=== PATIENT | male | born 1970 | race Two or more races ===

== ENCOUNTER 2018-03-29 18:13 | Emergency (ER) | payer SELFPAY ==
--- NOTE | 2018-03-29 18:33 | NUR ---
CALLED IN [facility], NO RESPONSE
--- NOTE | 2018-03-29 19:00 | NUR ---
CALLED MULTIPLE TIMES IN [facility], NO RESPONSE.
--- NOTE | 2018-03-29 19:36 | NUR ---
CALLED PT IN [facility], NO RESPONSE.
== END 2018-03-29 19:39 | disposition left against medical advice (07) ==
LOC: ER 18:18
DX: Z53.21 Procedure and treatment not carried out due to patient leaving prior to being seen by health care provider (principal)

== ENCOUNTER 2018-05-05 16:40 | Emergency (ER) | payer SELFPAY ==
--- NOTE | 2018-05-05 16:45 | NUR ---
CALLED TO TRIAGE,NOT AVAILABLE, "MAKING A PHONE CALL"
--- NOTE | 2018-05-05 17:08 | NUR ---
2ND CALL, PATIENT IS NOT IN THE WAITING ROOM.
--- NOTE | 2018-05-05 17:16 | NUR ---
3RD CALL, PATIENT IS NOT IN THE WAITING ROOM.
== END 2018-05-05 17:19 | disposition left against medical advice (07) ==
LOC: ER 16:42
DX: Z53.21 Procedure and treatment not carried out due to patient leaving prior to being seen by health care provider (principal)

== ENCOUNTER 2018-06-05 06:10 | Emergency (ER) | payer SELFPAY ==
[~2018-06-05] VITALS: Ht 175.3 cm; Wt 79.4 kg
--- NOTE | 2018-06-05 06:20 | NUR ---
PT CAME TO EMERGENCY DEPT. COMPLAINING OF L FLANK PAIN X 4 HOURS. PT STATES HE HAS HX OF KIDNEY STONES. PT AXO4. RESPIRATIONS EVEN AND UNLABORED. PT PUT ON THE MONITOR AND PULSE OX. PENDING EVAL FROM ER .
[2018-06-05] MEDS ORDERED: FENTANYL PF 100MCG/2ML AMPUL IV ONE (06:30)
[2018-06-05] MEDS ORDERED: ONDANSETRON HCL/PF 4 MG/2 ML VIAL IV ONE (06:30)
[2018-06-05] MEDS ORDERED: IV NS 0.9% 1,000 ML BAG IV ONE (06:30)
--- NOTE | 2018-06-05 06:30 | NUR ---
PT STATES UNABLE TO GIVE URINE AT THE MOMENT.
[2018-06-05 07:00] VITALS: BP 155/91
[2018-06-05] MEDS ORDERED: FENTANYL PF 100MCG/2ML AMPUL ONE (07:00)
[2018-06-05] MEDS ORDERED: ONDANSETRON HCL/PF 4 MG/2 ML VIAL ONE (07:00)
[2018-06-05 07:04] LABS: BASOPHILS % (AUTO) 0.6 % (0.0-2.0); EOSINOPHILS % (AUTO) 0.8 % (0.0-6.0); HEMATOCRIT 37 % (39-51); HEMOGLOBIN 12.5 g/dL (13.5-17.5); LYMPHOCYTES # (AUTO) 0.8 /CMM (0.8-4.8); LYMPHOCYTES % (AUTO) 14.4 % (20.0-44.0); MEAN CORPUSCULAR HGB CONC 34 g/dl (31.0-36.0); MEAN CORPUSCULAR VOLUME 95 fL (80-96); MONOCYTES # (AUTO) 0.7 /CMM (0.1-1.30); MONOCYTES % (AUTO) 11.5 % (2.0-12.0); NEUTROPHILS # (AUTO) 4.2 /CMM (1.8-8.9); NEUTROPHILS % (AUTO) 72.7 % (43.0-81.0); PLATELET COUNT (AUTO) 243 /CMM (150-450); RED BLOOD CELL COUNT(AUTO) 3.94 MIL/uL (4.5-6.0); WHITE BLOOD COUNT (AUTO) 5.8 K/uL (4.3-11.0)
[2018-06-05 07:17] LABS: CALCIUM, SERUM 9.3 mg/dL (8.5-10.1); CREATININE 0.7 mg/dL (0.6-1.3); POTASSIUM 3.9 mmol/L (3.5-5.1)
--- NOTE | 2018-06-05 07:22 | NUR ---
REPORT GIVEN TO RICHY GALVEZ FOR MARI[facility].
--- NOTE | 2018-06-05 07:22 | NUR ---
URINE SENT TO LAB.
[2018-06-05 07:25] LABS: ALBUMIN 3.5 g/dL (3.4-5.0); BILIRUBIN,DIRECT 0.1 mg/dL (0.0-0.2); BILIRUBIN,TOTAL 0.3 mg/dL (0.2-1.0); TOTAL PROTEIN, SERUM 7.6 g/dL (6.4-8.2)
--- NOTE | 2018-06-05 07:45 | NUR ---
Patient eloped from facility. ER MD notified.
[2018-06-05 07:46] LABS: APPEARANCE,URINE Cloudy (CLEAR); BILIRUBIN,URINE Negative (NEGATIVE); BLOOD, URINE Trace-intact Ery/uL (NEGATIVE); COLOR,URINE Yellow (YELLOW); KETONES,URINE Negative (NEGATIVE); LEUKOCYTE ESTERASE ,URINE Negative (NEGATIVE); NITRITE, URINE Negative (NEGATIVE); PROTEIN,URINE Trace mg/dl (NEGATIVE); UGLUCOSE Negative (NEGATIVE); UROBILINOGEN,URINE 0.2 EU/dL (0.2)
[2018-06-05 07:50] LABS: BACTERIA,URINE 1+ /HPF (None Seen); RBC,URINE 0-2 /HPF (0-2); SQUAMOUS EPITHELIAL CELL,UR None Seen /HPF (None Seen); URINE AMORPHOUS PHOSPHATES Few /HPF (None Seen); WBC,URINE NONE SEEN /HPF (0-3)
--- NOTE | 2018-06-05 07:57 | NUR ---
Called [employer] handle sander operator dispatch handle sander operator [phone] and reported patient eloped with IV inserted.
--- NOTE | 2018-06-05 08:07 | NUR ---
Spoke with officer Loki (Badge # [id number]) at [place] dispatch, and reported that patient eloped with IV inserted.
== END 2018-06-05 08:14 | disposition left against medical advice (07) ==
LOC: ER 06:12
DX: D64.9 Anemia, unspecified (principal); R10.32 Left lower quadrant pain; R10.31 Right lower quadrant pain; Z76.5 Malingerer [conscious simulation]; Z87.442 Personal history of urinary calculi; Z98.890 Other specified postprocedural states; Z88.6 Allergy status to analgesic agent
CPT/HCPCS: 36415; 80048; 80076; 81001; 83690; 85025; 96374; 96375; 99283; A4606; J2405; J3010; J7030; 81000-TC

== ENCOUNTER 2018-08-05 22:44 | Emergency (ER) | payer SELFPAY ==
[~2018-08-05] VITALS: Ht 175.3 cm; Wt 79.4 kg
[2018-08-05 22:56] VITALS: BP 153/96
[2018-08-05] MEDS ORDERED: HYDROCODONE/APAP 10/325MG 1 EA TABLET PO ONE (23:30)
[2018-08-05] MEDS ORDERED: HYDROCODONE/APAP 10/325MG 1 EA TABLET ONE (23:39)
== END 2018-08-05 23:46 | disposition home or self-care (01) ==
LOC: ER 22:44
DX: M54.5 Low back pain (principal); G89.29 Other chronic pain; Z90.89 Acquired absence of other organs; Z98.890 Other specified postprocedural states; Z87.442 Personal history of urinary calculi; Z88.6 Allergy status to analgesic agent

== ENCOUNTER 2019-02-16 03:56 | Emergency (ER) | payer SELFPAY ==
[~2019-02-16] VITALS: Ht 175.3 cm; Wt 79.4 kg
--- NOTE | 2019-02-16 04:33 | NUR ---
PT AAOX4. AMBULATORY. PT C/O ABDOMINAL PAIN LLQ 7/10 SHARP, NON RADIATING. PT STATES HE IS ALLERGIC TO MOTRIN AND TORADOL. NO ACUTE DISTRESS NOTED. PLACED ON MONIOTR AND PULSE OX. AT BEDSIDE.
[2019-02-16] MEDS ORDERED: ONDANSETRON 4 MG TAB.RAPDIS ONE (04:42)
[2019-02-16] MEDS ORDERED: HYDROMORPHONE HCL 2 MG TABLET ONE (04:42)
--- NOTE | 2019-02-16 04:46 | NUR ---
[employer] AT BEDSIDE FOR LAB COLLECTION
--- NOTE | 2019-02-16 04:48 | NUR ---
URINE COLLECTED AND SENT TO LAB
[2019-02-16 04:58] LABS: BASOPHILS % (AUTO) 0.8 % (0.0-2.0); EOSINOPHILS % (AUTO) 1.8 % (0.0-6.0); HEMATOCRIT 41 % (39-51); HEMOGLOBIN 13.7 g/dL (13.5-17.5); LYMPHOCYTES # (AUTO) 0.9 /CMM (0.8-4.8); LYMPHOCYTES % (AUTO) 15.1 % (20.0-44.0); MEAN CORPUSCULAR HGB CONC 33 g/dl (31.0-36.0); MEAN CORPUSCULAR VOLUME 94 fL (80-96); MONOCYTES # (AUTO) 0.5 /CMM (0.1-1.30); MONOCYTES % (AUTO) 7.7 % (2.0-12.0); NEUTROPHILS # (AUTO) 4.4 /CMM (1.8-8.9); NEUTROPHILS % (AUTO) 74.6 % (43.0-81.0); PLATELET COUNT (AUTO) 205 /CMM (150-450); RED BLOOD CELL COUNT(AUTO) 4.34 MIL/uL (4.5-6.0); WHITE BLOOD COUNT (AUTO) 5.9 K/uL (4.3-11.0)
[2019-02-16] MEDS ORDERED: ONDANSETRON 4 MG TAB.RAPDIS SL ONE (05:00)
[2019-02-16] MEDS ORDERED: HYDROMORPHONE HCL 2 MG TABLET PO PRN (05:00)
--- NOTE | 2019-02-16 05:02 | NUR ---
PT EDWIN TO CT
--- NOTE | 2019-02-16 05:08 | NUR ---
PT BROUGHT BACK FROM CT
[2019-02-16 05:09] LABS: CREATININE 0.7 mg/dL (0.6-1.3); POTASSIUM 3.7 mmol/L (3.5-5.1)
[2019-02-16 05:15] LABS: ALBUMIN 3.8 g/dL (3.4-5.0); BILIRUBIN,DIRECT 0.1 mg/dL (0.0-0.2); BILIRUBIN,TOTAL 0.3 mg/dL (0.2-1.0); TOTAL PROTEIN, SERUM 7.4 g/dL (6.4-8.2)
[2019-02-16 05:32] LABS: APPEARANCE,URINE SL CLOUDY (CLEAR); BILIRUBIN,URINE NEGATIVE (NEGATIVE); BLOOD, URINE SMALL Ery/uL (NEGATIVE); COLOR,URINE YELLOW (YELLOW); KETONES,URINE NEGATIVE (NEGATIVE); LEUKOCYTE ESTERASE ,URINE NEGATIVE (NEGATIVE); NITRITE, URINE NEGATIVE (NEGATIVE); PH,URINE 6.5 (5.0-8.0); PROTEIN,URINE NEGATIVE (NEGATIVE); UGLUCOSE NEGATIVE (NEGATIVE); UROBILINOGEN,URINE 0.2 EU/dL (0.2)
[2019-02-16 05:55] VITALS: BP 138/84
--- NOTE | 2019-02-16 05:55 | NUR ---
Patient discharged to home in stable condition. Written and verbal after care instructions given. Patient verbalizes understanding of instruction and RX. pt ambulatory with a steady gait.
== END 2019-02-16 05:55 | disposition home or self-care (01) ==
LOC: ER 04:00
DX: R10.32 Left lower quadrant pain (principal); R11.0 Nausea; G89.29 Other chronic pain; M54.5 Low back pain; Z87.442 Personal history of urinary calculi; Z98.890 Other specified postprocedural states; Z88.6 Allergy status to analgesic agent; Z90.89 Acquired absence of other organs
CPT/HCPCS: 36415; 74176; 80048; 80076; 81001; 83690; 85025; 85730; 99284; Q0162; 81000-TC

== ENCOUNTER 2019-05-19 04:34 | Emergency (ER) | payer SELFPAY ==
[~2019-05-19] VITALS: Ht 175.3 cm; Wt 79.4 kg
[2019-05-19 05:00] VITALS: BP 164/100
[2019-05-19] MEDS ORDERED: ONDANSETRON HCL/PF 4 MG/2 ML VIAL ONE (05:29)
[2019-05-19] MEDS ORDERED: MORPHINE SULFATE INJ 4 MG/ML DISP.SYRIN ONE (05:29)
[2019-05-19] MEDS ORDERED: MORPHINE SULFATE INJ 2 MG/ML DISP.SYRIN IV ONE (05:30)
[2019-05-19] MEDS ORDERED: IV NS 0.9% 500 ML BAG IV ONE (05:30)
[2019-05-19] MEDS ORDERED: ONDANSETRON HCL/PF 4 MG/2 ML VIAL IVP ONE (05:30)
[2019-05-19] MEDS: MORPHINE SULFATE INJ 10 MG/ML DISP.SYRIN IM ONE (05:50)
[2019-05-19] MEDS ORDERED: ONDANSETRON 4 MG TAB.RAPDIS ONE (05:51)
[2019-05-19] MEDS: ONDANSETRON 4 MG TAB.RAPDIS SL ONE (05:58)
--- NOTE | 2019-05-19 05:59 | NUR ---
brought back from ct
--- NOTE | 2019-05-19 06:00 | NUR ---
refused providing blood work
--- NOTE | 2019-05-19 06:40 | NUR ---
PT WALKED OUT OF THE ED SOON HE HEARD HE WAS GOING TO BE DISCHARGED BY THE MD. THE PT WAS TOLD TO WAIT FOR HIS DISCHARGE INSTRUCTIONS, THE PATIENT WALKED OUT.
== END 2019-05-19 06:43 | disposition home or self-care (01) ==
LOC: ER 04:36
DX: R10.32 Left lower quadrant pain (principal); R10.31 Right lower quadrant pain; Z87.442 Personal history of urinary calculi; Z98.890 Other specified postprocedural states; Z90.89 Acquired absence of other organs; Z88.6 Allergy status to analgesic agent
CPT/HCPCS: 74176; 96372; 99284; J2270; Q0162; J2405; J7040

== ENCOUNTER 2024-01-15 16:05 | Emergency (ER) | payer MEDICAID ==
[2024-01-15] MEDS ORDERED: GABA300C PO (19:53)
== END 2024-01-15 17:06 | disposition left against medical advice (07) ==
LOC: ER 16:15
DX: M54.9 Dorsalgia, unspecified (principal); Z53.21 Procedure and treatment not carried out due to patient leaving prior to being seen by health care provider

== ENCOUNTER 2024-01-15 18:50 | Emergency (ER) | payer MEDICAID ==
[~2024-01-15] VITALS: Ht 167.6 cm; Wt 81.2 kg
[2024-01-15 19:35] VITALS: BP 133/70; TEMP 98.3
[2024-01-15] MEDS ORDERED: GABA300C PO (19:53)
[2024-01-15] MEDS ORDERED: GABAPENTIN 300 MG CAPSULE ONE (19:54)
[2024-01-15] MEDS: GABAPENTIN 100 MG CAPSULE PO ONE (19:57)
[2024-01-15 19:58] VITALS: O2SAT 99
== END 2024-01-15 19:59 | disposition home or self-care (01) ==
LOC: EDUNIT# 18:50 → ER 18:53
DX: M54.50 Low back pain, unspecified (principal); Z87.442 Personal history of urinary calculi; Z90.49 Acquired absence of other specified parts of digestive tract; Z88.6 Allergy status to analgesic agent

== ENCOUNTER 2024-08-04 04:10 | Emergency (ER) | payer SELFPAY ==
[~2024-08-04] VITALS: Ht 172.7 cm; Wt 70.3 kg
[~2024-08-04 04:10] MED LIST: GABA300C PO
[2024-08-04 04:19] VITALS: BP 135/81; TEMP 98.3; O2SAT 99
== END 2024-08-04 04:57 | disposition left against medical advice (07) ==
LOC: ER 04:13
DX: G89.29 Other chronic pain (principal); M54.9 Dorsalgia, unspecified; Z76.5 Malingerer [conscious simulation]; Z87.442 Personal history of urinary calculi; Z88.6 Allergy status to analgesic agent; Z90.49 Acquired absence of other specified parts of digestive tract; Z88.8 Allergy status to other drugs, medicaments and biological substances